=== PATIENT | female | born 1970 | race Caucasian/White ===

== ENCOUNTER → 2024-02-26 13:39 | Outpatient (REF) | payer OTHER, SELFPAY | LOC: RAD 13:39 | PROVIDERS: ATTENDING PHYSICIAN Family Medicine | DX: R14.2 Eructation (principal); R14.1 Gas pain; K30 Functional dyspepsia; Z87.19 Personal history of other diseases of the digestive system; R10.12 Left upper quadrant pain | CPT/HCPCS: 74177; Q9967 ==